=== PATIENT | female | born 1930 | race Caucasian/White ===

== ENCOUNTER 2017-11-08 17:48 | Inpatient (IN) | payer OTHER ==
[2017-11-08 18:07] LABS: Arterial Blood Carboxyhemoglob 1.5 % (0-1.5); Blood Gas Oxyhemoglobin 95.4 % (94-97); Blood O2 Saturation 97.3 % (92-98.5)
[2017-11-08] MEDS ORDERED: NITROGLYCERIN 1 GM PKT TD ONE (18:22)
[2017-11-08] MEDS ORDERED: FUROSEMIDE 100 MG/10 ML VIAL IV ONE (18:22)
[2017-11-08 18:27] LABS: Protime INR 1.19
[2017-11-08 18:38] LABS: Albumin 2.9 g/dL (3.2-5.5); Bilirubin Direct 0.2 mg/dL (0-0.2); Magnesium 2.5 mg/dL (1.8-2.5); Protein, Total 5.5 g/dL (6.0-8.3)
[2017-11-08 18:39] LABS: Absolute Monocytes 0.8 K/uL (0.1-1.3); Absolute Neutrophil 12.1 K/uL (1.8-8.0); Basophils % 0.2 % (0-1.3); Eosinophils % 0.3 % (0-4.4); Hematocrit 31.1 % (36.0-45.0); Lymphocytes % 13.4 % (15.3-44.8); MCH 27.4 pg (27.0-35.0); MCV 88.2 fL (80-100); MPV 11.9 fL (7.6-11.3); Monocytes % 5.2 % (3.3-12.3); RBC Red Blood Cell Count 3.52 M/uL (3.86-4.86)
--- NOTE | 2017-11-08 18:40 | RAD REPORT ---
EXAM DESCRIPTION: RAD - Chest Single View - 11/08/2017 6:34 pm CLINICAL HISTORY: Shortness of breath. COMPARISON: 10/03/2017 FINDINGS: Portable technique limits examination quality. A moderate right pleural effusion is noted. The lungs are otherwise grossly clear. The heart is mildl y enlarged in size. No displaced fractures. IMPRESSION: Moderate right pleural effusion.
[2017-11-08 18:41] LABS: CKMB Creatine Kinase MB 1.9 ng/ml (0.3-4.0)
[2017-11-08 18:43] LABS: Potassium 6.6 mEq/L (3.6-5.0)
[2017-11-08] MEDS ORDERED: AMIODARONE HCL 450 MG in D5W 241 ML IV SCH (19:00)
[2017-11-08] MEDS ORDERED: ALBUTEROL 2.5 MG/3 ML NEB SOL ONE (19:08)
[2017-11-08] MEDS ORDERED: INSULIN -REGULAR HUMAN 50 UNIT/0.5 ML ML ONE (19:08)
[2017-11-08] MEDS ORDERED: D50W 25 GM/50 ML SYRINGE IV ONE (19:09)
--- NOTE | 2017-11-08 19:11 | ER ---
Nurse's Notes [facility] Name: Ramila Arias Age: 87 yrs Sex: Female : 1930 Arrival Date: 11/08/2017 Time: 17:49 Bed 4 Private MD: Diagnosis: Acute combined systolic (congestive) and diastolic (congestive) heart failure Presentation: 11/08 17:52 Presenting complaint: EMS states: C/O SOB that started today. Patient is on hospice for aj CHF. Anasarca noted to bilateral legs. Transition of care: patient was received from another setting of care (long-term care facility). Onset of symptoms was November 08, 2017. Care prior to arrival: CPAP. 17:52 Method Of Arrival: EMS: [facility] 17:52 Acuity: KRISTIN 2 aj Triage Assessment: 17:58 General: Appears in no apparent distress. uncomfortable, obese, Behavior is aj cooperative, anxious. Pain: Denies pain. Neuro: Level of Consciousness is awake, alert, obeys commands, Oriented to person, place, time, situation. Cardiovascular: Edema is 4+ to left midcalf, left ankle, left foot, right midcalf, right ankle and right foot. Respiratory: Reports shortness of breath at rest on exertion Airway is patent Respiratory effort is even, labored, Respiratory pattern is tachypnea Onset: The symptoms/episode began/occurred today, the patient has severe shortness of breath. Derm: Skin is intact, is healthy with good turgor, Skin is pink, warm \T\ dry. normal. Historical: - Allergies: 17:58 NKA; aj - Home Meds: 17:58 acetaminophen 500 mg Oral tab 2 tabs as needed for Pain [Active]; amlodipine 10 mg tab aj 1 tab once daily for Hypertension [Active]; atorvastatin 10 mg Oral tab 1 tab once daily for Mixed Hyperlipidemia [Active]; citalopram 10 mg tab 1 tab once daily for Major Depressive Disorder [Active]; DuoNeb 0.5 mg-3 mg(2.5 mg base)/3 mL Inhl nebu 3 mL 4 times per day [Active]; glucogon as needed for hypoglycemia [Active]; Lantus 100 unit/mL Sub-Q soln [Active]; Lasix 40 mg Oral tab 1 tab 2 times per day [Active]; Lasix 20 mg Oral tab 1 tab 2 times per day [Active]; levothyroxine 75 mcg tab 1 tab once daily for Hypothyroidism [Active]; lisinopril 20 mg Oral tab 1 tab twice a day for Hypertension [Active]; loperamide 2 mg Oral cap 2 caps as needed for diarrhea [Active]; Novolog 100 unit/mL Sub-Q soln 14 unit before supper [Active]; potassium chloride 20 mEq Oral TbER 1 tab 2 times per day [Active]; sotalol 80 mg Oral tab 1 tab 2 times per day [Active]; Symbicort 160-4.5 mcg/actuation inhalation HFAA twice a day [Active]; Tessalon Perles 100 mg Oral cap 1 cap 3 times per day for as needed for cough'\E\ [Active]; valsartan 160 mg Oral tab 1 tab once daily [Active]; Xarelto 20 mg Oral tab 1 tab once daily for AFIB [Active]; - PMHx: 17:58 acute respiratory failure; Atrial Fib; CAD; candidiasis; CHF; Depression; Diabetes - aj IDDM; EDEMA; Hyperlipidemia; Hypertension; Hypothyroidism; MUSCLE WEAKNESS; Pneumonia; sob- o2 use at 2L; UTI; - Immunization history:: Adult Immunizations up to date. - Social history:: Smoking status: Patient/guardian denies using tobacco. Screenin:05 Abuse screen: Denies threats or abuse. Denies injuries from another. Nutritional aj1 screening: No deficits noted. Tuberculosis screening: No symptoms or risk factors identified. 22:26 Fall Risk Fall in past 12 months (25 points). Secondary diagnosis (15 points) impaired aj1 mobility, IV access (20 points). Ambulatory Aid- None/Bed Rest/Nurse Assist (0 pts). Gait- Normal/Bed Rest/Wheelchair (0 pts) Mental Status- Overestimates/Forgets Limitations (15 pts.). Total Isidro Fall Scale indicates High Risk Score (45 or more points). Family Present and informed to notify staff if the need to leave the bedside As available patient and family educated on Fall Prevention Program and Strategies. Assessment: 18:05 General: Appears distressed, uncomfortable, Behavior is cooperative, anxious. Pain: aj1 Denies pain. Neuro: Level of Consciousness is awake, alert, obeys commands, Oriented to person, place, time, situation. Cardiovascular: Reports shortness of breath, Denies chest pain, Heart tones S1 S2 present skin is pale, cool. clammy, cyanosis noted to fingertips. Edema pitting to enitre body Rhythm is atrial fibrillation with rapid ventricular response. Respiratory: Reports shortness of breath Airway is patent Respiratory effort is even, labored, Respiratory pattern is tachypnea Breath sounds with crackles Breath sounds are diminished. GI: No signs and/or symptoms were reported involving the gastrointestinal system. : No signs and/or symptoms were reported regarding the genitourinary system. EENT: No signs and/or symptoms were reported regarding the EENT system. Derm: Skin is clammy, Skin is pale, Skin temperature is cool Bruising that is dark purple, on left calf. Musculoskeletal: Circulation, motion, and sensation intact. 19:05 Reassessment: Patient appears in no apparent distress at this time. No changes from aj1 previously documented assessment. Patient and/or family updated on plan of care and expected duration. Pain level reassessed. Patient is alert, oriented x 3, equal unlabored respirations, skin warm/dry/pink. 19:15 Reassessment: After giving initial 150 mg of amiodarone BP dropped to 76/41, removed aj1 Nitro patch and notified Dr. Galvez, order received to cancel remaining amiodarone. 20:05 General: Appears in no apparent distress. uncomfortable, Behavior is anxious, restless. aj1 Pain: Complains of pain in right leg and left leg Pain does not radiate. Pain currently is 10 out of 10 on a pain scale. Neuro: Level of Consciousness is awake, alert, obeys commands, Oriented to person, place, time, situation. Cardiovascular: Heart tones S1 S2 present Edema pitting to entire body Rhythm is atrial fibrillation with rapid ventricular response. Respiratory: Airway is patent Respiratory effort is even, unlabored, Respiratory pattern is regular, tachypnea Breath sounds with crackles bilaterally. Breath sounds are diminished. Derm: Skin is clammy, Skin is pale, Skin temperature is cool. Musculoskeletal: Circulation, motion, and sensation intact. 20:15 Reassessment: Patient is complaining of pain, notified JAMES Urbina. Order received. aj1 21:16 Reassessment: Patient appears in no apparent distress at this time. No changes from aj1 previously documented assessment. Patient and/or family updated on plan of care and expected duration. Pain level reassessed. Patient is alert, oriented x 3, equal unlabored respirations, skin warm/dry/pink. Vital Signs: 17:58 BP 135 / 110; Pulse 137; Resp 28; Temp 98.7; Pulse Ox 100% on BiPAP; Weight 113.4 kg; aj Height 5 ft. 5 in. (165.10 cm); 18:23 BP 104 / 74; Pulse 143; Resp 35; Pulse Ox 98% ; aj 19:16 BP 76 / 41; Pulse 136; Resp 32; Pulse Ox 100% on BiPAP; aj1 19:34 BP 101 / 70; Pulse 136; Resp 28; Pulse Ox 100% ; aj1 19:52 BP 90 / 60; Pulse 136; Resp 34; Pulse Ox 100% ; aj1 20:24 BP 91 / 67; Pulse 157; Resp 32; Pulse Ox 97% ; aj1 21:39 BP 97 / 71; Pulse 133; Resp 26; Pulse Ox 100% ; aj1 17:58 Body Mass Index 41.60 (113.40 kg, 165.10 cm) aj ED Course: 17:49 Patient arrived in ED. ds1 17:49 Prince Galvez MD is Attending Physician. ma2 17:54 Triage completed. aj 17:58 Arm band placed on left wrist. Patient placed in an exam room, on a stretcher. EKG aj completed in triage. Results shown to MD. 18:05 Patient has correct armband on for positive identification. aj1 18:05 No provider procedures requiring assistance completed. aj1 18:05 Initial lab(s) drawn, by de, sent to lab. Inserted saline lock: 22 gauge in right aj1 antecubital area, using aseptic technique. Blood collected. 18:19 Keisha Lim, RN is Primary Nurse. aj 18:32 X-ray completed. Portable x-ray completed in exam room. Patient tolerated procedure ml well. 19:09 Prince Galvez MD is Hospitalizing Provider. ma2 19:09 Hospitalizing Provider role handed off by Prince Galvez MD ma2 19:09 Prince Barry MD is Hospitalizing Provider. ma2 22:12 Primary Nurse role handed off by Keisha Lim RN tl2 22:12 Attending Physician role handed off by Prince Galvez MD tl2 22:27 Patient admitted, IV remains in place. aj1 Administered Medications: 18:20 Drug: Lasix 100 mg Route: IVP; Site: left antecubital; aj 19:00 Follow up: Response: No adverse reaction aj1 18:20 Drug: Nitroglycerin Ointment 2 % 1 inches Route: Transdermal; Site: anterior chest wall;aj 19:15 Follow up: Response: Adverse reaction, Physician notified; Blood pressure is lowered aj1 19:00 Drug: Albuterol 2.5 mg Route: Inhalation; aj1 19:00 Drug: Insulin Regular Human 5 units {Co-Signature: aj (Keisha Lim RN).} Route: IVP; aj1 Site: left antecubital; 19:15 Follow up: Response: No adverse reaction aj1 19:00 Drug: D50W 50 ml Route: IVP; Site: left antecubital; aj1 19:15 Follow up: Response: No adverse reaction aj1 19:15 Drug: amiodarone 150 mg {Note: Gave 150mg IVP, rechecked BP 76/41, notified DrNola Galvez, do not give the rest of amiodarone .} Route: IVP; Site: left antecubital; 19:15 Follow up: Response: Adverse reaction, Physician notified; Blood pressure is lowered aj1 20:05 Not Given (Physician Discretion): amiodarone 900 mg, D5W 500 ml IVPB at 1 mg/min aj1 continuous; for 6 hrs, then change to 0.5 mg/min 20:23 Drug: fentaNYL (PF) 25 mcg Route: IVP; Site: left antecubital; aj1 20:45 Drug: fentaNYL (PF) 25 mcg Route: IVP; Site: left antecubital; aj1 21:14 CANCELLED (ordered under wrong physician name): HydroCORTISONE 100 mg IVP once aj1 21:15 Drug: HydroCORTISONE 100 mg Route: IVP; Site: left antecubital; aj1 21:55 Drug: fentaNYL (PF) 25 mcg Route: IVP; Site: left antecubital; aj1 22:00 Not Given (Physician Discretion): Nitro Drip - (Nitroglycerin 50 mg, D5W 250 ml) IV at aj1 5 mcg/min continuous; titrate until desired hemodynamic response. Outcome: 19:10 Decision to Hospitalize by Provider. ma2 22:12 Patient left the ED. tl2 22:27 Admitted to Tele accompanied by nurse, accompanied by tech, via stretcher, with chart. aj1 22:27 Condition: improved 22:27 Discharge instructions given to patient, Instructed on the need for admit, Demonstrated understanding of instructions. 22:31 Patient left the ED. aj1 Signatures: Paulina Karimi RN RN aj1 Keisha Lim RN RN Elaine Burnette ds1 Cindy Hamm Taylor, RN RN tl2 Prince Galvez MD MD ma2 Keisha bradford
--- NOTE | 2017-11-08 19:11 | EDPHYS ---
Physician Documentation [facility] Name: Ramila Arias Age: 87 yrs Sex: Female : 1930 Arrival Date: 11/08/2017 Time: 17:49 Bed 4 Private MD: ED Physician HPI: 11/08 18:08 This 87 yrs old Female presents to ER via EMS with complaints of Breathing ma2 Difficulty. 18:08 Onset: The symptoms/episode began/occurred gradually, 1 day(s) ago. Duration: The ma2 symptoms are chronic. The patient's shortness of breath has no apparent modifying factors. Associated signs and symptoms: Pertinent positives: LE edema , Pertinent negatives: chest pain, non-productive cough, diaphoresis, dizziness, loss of consciousness, nausea. Severity of symptoms: At their worst the symptoms were moderate in the emergency department the symptoms have improved. The patient has experienced similar episodes in the past. Historical: - Allergies: 17:58 NKA; aj - Home Meds: 17:58 acetaminophen 500 mg Oral tab 2 tabs as needed for Pain [Active]; amlodipine 10 mg tab aj 1 tab once daily for Hypertension [Active]; atorvastatin 10 mg Oral tab 1 tab once daily for Mixed Hyperlipidemia [Active]; citalopram 10 mg tab 1 tab once daily for Major Depressive Disorder [Active]; DuoNeb 0.5 mg-3 mg(2.5 mg base)/3 mL Inhl nebu 3 mL 4 times per day [Active]; glucogon as needed for hypoglycemia [Active]; Lantus 100 unit/mL Sub-Q soln [Active]; Lasix 40 mg Oral tab 1 tab 2 times per day [Active]; Lasix 20 mg Oral tab 1 tab 2 times per day [Active]; levothyroxine 75 mcg tab 1 tab once daily for Hypothyroidism [Active]; lisinopril 20 mg Oral tab 1 tab twice a day for Hypertension [Active]; loperamide 2 mg Oral cap 2 caps as needed for diarrhea [Active]; Novolog 100 unit/mL Sub-Q soln 14 unit before supper [Active]; potassium chloride 20 mEq Oral TbER 1 tab 2 times per day [Active]; sotalol 80 mg Oral tab 1 tab 2 times per day [Active]; Symbicort 160-4.5 mcg/actuation inhalation HFAA twice a day [Active]; Tessalon Perles 100 mg Oral cap 1 cap 3 times per day for as needed for cough'\E\ [Active]; valsartan 160 mg Oral tab 1 tab once daily [Active]; Xarelto 20 mg Oral tab 1 tab once daily for AFIB [Active]; - PMHx: 17:58 acute respiratory failure; Atrial Fib; CAD; candidiasis; CHF; Depression; Diabetes - aj IDDM; EDEMA; Hyperlipidemia; Hypertension; Hypothyroidism; MUSCLE WEAKNESS; Pneumonia; sob- o2 use at 2L; UTI; - Immunization history:: Adult Immunizations up to date. - Social history:: Smoking status: Patient/guardian denies using tobacco. ROS: 18:08 Constitutional: Negative for fever, chills, and weight loss, Eyes: Negative for injury, ma2 pain, redness, and discharge, ENT: Negative for injury, pain, and discharge, Neck: Negative for injury, pain, and swelling, Abdomen/GI: Negative for abdominal pain, nausea, diarrhea, and constipation, Back: Negative for injury and pain, : Negative for injury, bleeding, discharge, and swelling, MS/Extremity: Negative for injury and deformity, Skin: Negative for injury, rash, and discoloration, Neuro: Negative for headache, weakness, numbness, tingling, and seizure, Psych: Negative for depression, anxiety, suicide ideation, homicidal ideation, and hallucinations, Allergy/Immunology: Negative for hives, rash, and allergies, Endocrine: Negative for neck swelling, polydipsia, polyuria, polyphagia, and marked weight changes. 18:08 Cardiovascular: Positive for edema, orthopnea, Negative for chest pain, acute changes. 18:08 Respiratory: Positive for shortness of breath, Negative for cough, sputum production, wheezing. Exam: 18:08 ENT: Nares patent. No nasal discharge, no septal abnormalities noted. Tympanic ma2 membranes are normal and external auditory canals are clear. Oropharynx with no redness, swelling, or masses, exudates, or evidence of obstruction, uvula midline. Mucous membranes moist. Neck: Trachea midline, no thyromegaly or masses palpated, and no cervical lymphadenopathy. Supple, full range of motion without nuchal rigidity, or vertebral point tenderness. No Meningismus. Abdomen/GI: Soft, non-tender, with normal bowel sounds. No distension or tympany. No guarding or rebound. No evidence of tenderness throughout. Neuro: Awake and alert, GCS 15, oriented to person, place, time, and situation. Cranial nerves II-XII grossly intact. Motor strength 5/5 in all extremities. Sensory grossly intact. Cerebellar exam normal. Normal gait. 18:08 Constitutional: The patient appears alert, awake, in obvious distress, moderately distressed. 18:08 Chest/axilla: Inspection: no acute changes, Palpation: no acute changes. 18:08 Cardiovascular: Rate: tachycardic, Rhythm: irregularly irregular, Edema: 4+ edema to level of left midcalf and right midcalf, JVD: 18:08 ECG was reviewed by the Attending Physician. 18:08 Respiratory: moderate respiratory distress is noted, Respirations: Breath sounds: rales, Respiratory rate: 22 Vital Signs: 17:58 BP 135 / 110; Pulse 137; Resp 28; Temp 98.7; Pulse Ox 100% on BiPAP; Weight 113.4 kg; aj Height 5 ft. 5 in. (165.10 cm); 18:23 BP 104 / 74; Pulse 143; Resp 35; Pulse Ox 98% ; aj 19:16 BP 76 / 41; Pulse 136; Resp 32; Pulse Ox 100% on BiPAP; aj1 19:34 BP 101 / 70; Pulse 136; Resp 28; Pulse Ox 100% ; aj1 19:52 BP 90 / 60; Pulse 136; Resp 34; Pulse Ox 100% ; aj1 20:24 BP 91 / 67; Pulse 157; Resp 32; Pulse Ox 97% ; aj1 21:39 BP 97 / 71; Pulse 133; Resp 26; Pulse Ox 100% ; aj1 17:58 Body Mass Index 41.60 (113.40 kg, 165.10 cm) aj MDM: 17:49 Patient medically screened. ma2 18:08 Differential diagnosis: Anemia Anxiety Reaction CHF exacerbation, Chronic Obstructive ma2 Pulmonary Disease pneumonia, pulmonary edema, reactive airway disease. 19:08 Data reviewed: vital signs, nurses notes, EMS record. Counseling: I had a detailed [facility] discussion with the patient and/or guardian regarding: the historical points, exam findings, and any diagnostic results supporting the discharge/admit diagnosis, lab results, radiology results. 11/08 17:50 Order name: Basic Metabolic Panel [facility] 11/08 17:50 Order name: BNP [facility] 11/08 17:50 Order name: CBC with Diff [facility] 11/08 17:50 Order name: Ckmb [facility] 11/08 17:50 Order name: CPK [facility] 11/08 17:50 Order name: LFT's [facility] 11/08 17:50 Order name: Magnesium [facility] 11/08 17:50 Order name: PT-INR [facility] 11/08 17:50 Order name: Ptt, Activated [facility] 11/08 17:50 Order name: Troponin (emerg Dept Use Only) [facility] 11/08 18:04 Order name: ABG [facility] 11/08 18:32 Order name: Basic Metabolic Panel; Complete Time: 19:05 EDMS 11/08 18:33 Order name: Protime (+INR); Complete Time: 19:05 EDMS 11/08 18:33 Order name: PTT, Activated Partial Thromb; Complete Time: 19:05 EDMS 11/08 17:50 Order name: XRAY Chest (1 view) [facility] 11/08 18:33 Order name: ABG Arterial Blood Gas; Complete Time: 19:05 EDMS 11/08 18:38 Order name: Liver (Hepatic) Function; Complete Time: 19:05 EDMS 11/08 18:38 Order name: Creatine Phosphokinase; Complete Time: 19:05 EDMS 11/08 18:38 Order name: Magnesium; Complete Time: 19:05 EDMS 11/08 18:38 Order name: Troponin (Emerg Dept Use Only); Complete Time: 19:05 MS 11/08 18:41 Order name: CBC with Automated Diff; Complete Time: 19:05 MS 11/08 18:42 Order name: CKMB Creatine Kinase MB; Complete Time: 19:05 EDMS 11/08 18:42 Order name: BNP B-Type Natriuretic Peptide; Complete Time: 19:05 EDMS 11/08 18:43 Order name: RAD; Complete Time: 19:05 EDMS 11/08 17:50 Order name: EKG; Complete Time: 17:51 ri11/08 17:50 Order name: Cardiac monitoring; Complete Time: 18:21 ri2 11/08 17:50 Order name: EKG - Nurse/Tech; Complete Time: 18:21 [facility] 11/08 17:50 Order name: IV Saline Lock; Complete Time: 18:21 [facility] 11/08 17:50 Order name: Labs collected and sent; Complete Time: 18:22 [facility] 11/08 17:50 Order name: O2 Per Protocol; Complete Time: 18:22 [facility] 11/08 17:50 Order name: O2 Sat Monitoring; Complete Time: 18:22 [facility] 11/08 19:31 Order name: Central Line Kit; Complete Time: 20:04 cp Administered Medications: 18:20 Drug: Lasix 100 mg Route: IVP; Site: left antecubital; aj 19:00 Follow up: Response: No adverse reaction aj1 18:20 Drug: Nitroglycerin Ointment 2 % 1 inches Route: Transdermal; Site: anterior chest wall;aj 19:15 Follow up: Response: Adverse reaction, Physician notified; Blood pressure is lowered aj1 19:00 Drug: Albuterol 2.5 mg Route: Inhalation; aj1 19:00 Drug: Insulin Regular Human 5 units {Co-Signature: aj (Keisha Lim RN).} Route: IVP; aj1 Site: left antecubital; 19:15 Follow up: Response: No adverse reaction aj1 19:00 Drug: D50W 50 ml Route: IVP; Site: left antecubital; aj1 19:15 Follow up: Response: No adverse reaction aj1 19:15 Drug: amiodarone 150 mg {Note: Gave 150mg IVP, rechecked BP 76/41, notified Dr. patt Galvez, do not give the rest of amiodarone .} Route: IVP; Site: left antecubital; 19:15 Follow up: Response: Adverse reaction, Physician notified; Blood pressure is lowered aj1 20:05 Not Given (Physician Discretion): amiodarone 900 mg, D5W 500 ml IVPB at 1 mg/min aj1 continuous; for 6 hrs, then change to 0.5 mg/min 20:23 Drug: fentaNYL (PF) 25 mcg Route: IVP; Site: left antecubital; aj1 20:45 Drug: fentaNYL (PF) 25 mcg Route: IVP; Site: left antecubital; aj1 21:14 CANCELLED (ordered under wrong physician name): HydroCORTISONE 100 mg IVP once aj1 21:15 Drug: HydroCORTISONE 100 mg Route: IVP; Site: left antecubital; aj1 21:55 Drug: fentaNYL (PF) 25 mcg Route: IVP; Site: left antecubital; aj1 22:00 Not Given (Physician Discretion): Nitro Drip - (Nitroglycerin 50 mg, D5W 250 ml) IV at aj1 5 mcg/min continuous; titrate until desired hemodynamic response. Disposition: 19:08 Critical Care:. ma2 Disposition: 11/08/17 19:10 Hospitalization ordered by Prince Barry for Inpatient Admission. Preliminary diagnosis is Acute combined systolic (congestive) and diastolic (congestive) heart failure. - Bed requested for Telemetry/MedSurg (Inpatient). - Status is Inpatient Admission. aj1 - Condition is Guarded. - Problem is new. - Symptoms have improved. UTI on Admission? No Signatures: Dispatcher [employer] EDMS Paulina Karimi RN RN aj1 Keisha Lim RN RN aj Ballard, Brenda, RN RN Zackery Vitale PA PA cp Knox, Taylor, RN RN 2 Prince Galvez MD MD [facility] Keisha bradford Corrections: (The following items were deleted from the chart) 21:14 21:13 HydroCORTISONE 100 mg IVP once ordered. aj1 aj1
[2017-11-08] MEDS ORDERED: AMIODARONE HCL 150 MG/3 ML INJ IV ONE (19:16)
[2017-11-08] MEDS ORDERED: ACETAMINOPHEN 500 MG TAB PO PRN (20:08)
[2017-11-08] MEDS ORDERED: ONDANSETRON 4 MG/2 ML VIAL IV PRN (20:08)
[2017-11-08] MEDS ORDERED: MORPHINE 4 MG/ML SYR IV PRN (20:10)
[2017-11-08] MEDS ORDERED: LIDOCAINE 1% 20 ML MDV ONE (20:13)
[2017-11-08] MEDS ORDERED: FENTANYL CITR 100 MCG/2 ML ONE (20:35)
[2017-11-08] MEDS ORDERED: INSULIN DETEMIR 100 UNIT/1 ML INSULIN SQ SCH (21:00)
[2017-11-08] MEDS ORDERED: FUROSEMIDE 40 MG TABLET PO SCH (21:00)
[2017-11-08] MEDS ORDERED: ALBUMIN HUMAN 25% 200 ML IV ONE (21:01)
--- NOTE | 2017-11-08 22:28 | EKG ---
Test Date: 2017-11-08 Test Time: 17:55:06 [employer] Supervisor: ZULEIKA MEASUREMENT RESULTS: Intervals: Rate: 145 MD: QRSD: 80 QT: 294 QTc: 456 [place]: P: MD: QRS: 33 T: 187 INTERPRETIVE STATEMENTS: Atrial fibrillation with rapid ventricular response ST & T wave abnormality, consider lateral ischemia Abnormal ECG Compared to ECG 09/29/2017 05:06:54 ST (T wave) deviation now present Possible ischemia now present Sinus bradycardia no longer present T-wave abnormality no longer present Electronically Signed On 11-08-17 22:28:09 CDT by Steven Mathur
[2017-11-08 23:26] VITALS: BMI 41.6
[2017-11-08] MEDS: DOCUSATE NA 100 MG CAP PO SCH (23:36)
[2017-11-08] MEDS ORDERED: ALBUMIN HUMAN 25% 100 ML IV ONE (23:41)
[2017-11-09] MEDS ORDERED: SOTALOL HCL 80 MG TAB PO ONE ×2 (01:03→02:00)
[2017-11-09] MEDS ORDERED: CALCIUM GLUC 10% INJ 4.65 MEQ in NA CHLORIDE 0.9% 100 ML IV ONE (01:05)
[2017-11-09] MEDS ORDERED: SODIUM BICARB 50 MEQ/50ML VIAL ONE (01:34)
[2017-11-09] MEDS ORDERED: D5W 1,000 ML with NA BICARB 8.4% 50 MEQ IV SCH ×2 (02:00)
[2017-11-09] MEDS: FENTANYL CITR 100 MCG/2 ML IV PRN ×2 (02:36→08:59)
[2017-11-09 03:36] VITALS: O2SAT 95
[2017-11-09] MEDS ORDERED: AMIODARONE HCL 450 MG in D5W 241 ML IV SCH (05:00)
[2017-11-09 06:02] LABS: Absolute Lymphocytes (CBC) 1.5 K/uL (0.7-4.9); Absolute Monocytes 0.4 K/uL (0.1-1.3); Absolute Neutrophil 11.6 K/uL (1.8-8.0); Basophils % 0.3 % (0-1.3); Eosinophils % 0.1 % (0-4.4); Hematocrit 33.5 % (36.0-45.0); Lymphocytes % 10.8 % (15.3-44.8); MCV 89.6 fL (80-100); MPV 12.5 fL (7.6-11.3); Monocytes % 3.3 % (3.3-12.3); RBC Red Blood Cell Count 3.73 M/uL (3.86-4.86)
[2017-11-09] MEDS: SOTALOL HCL 80 MG TAB PO SCH ×2 (06:15→17:05)
[2017-11-09 06:17] LABS: Albumin 2.9 g/dL (3.2-5.5); Protein, Total 5.3 g/dL (6.0-8.3)
--- NOTE | 2017-11-09 06:17 | P.HP ---
Certification for Inpatient Patient admitted to: Inpatient With expected LOS: >2 Midnights Patient will require the following post-hospital care: None Practitioner: I am a practitioner with admitting privileges, knowledge of patient current condition, hospital course, and medical plan of care. Services: Services provided to patient in accordance with Admission requirements found in Title 42 Section 412.3 of the Code of Federal Regulations Patient History Date of Service: 11/08/17 Reason for admission: Respiratory distress History of Present Illness: Patient is an 87-year-old female who I have known for a long time who has a history of congestive heart failure along with atrial fibrillation as well as hypertension and diabetes. Patient has declined quite significantly over the last few months and the family placed her in hospice care yesterday. Patient's daughter is power of civil drafter. However, the other 2 children are very involved in the decision-making. Patient was brought into the hospital in respiratory distress. Patient has significant anasarca in all 4 extremities. Patient also had a large bruising above her zygomatic arch bilaterally. It appears as for her classes were and were left in place for an extended period. I spoke to the family in detail and everyone does not want their mother to suffer. They do not want her to be cardioverted replaced on a mechanical ventilator, so they have decided to make her a do not resuscitate. Patient has had multiple episodes of altered mentation over the last few years. However, she tends to recover but she has continually declined over the last few years. At this time , family has decided to proceed with hospice care. Will continue palliative care at this time and will discuss the case with hospice in the morning. Will also continue to diurese her to the hell with the respirations and will make sure she gets her fentanyl regularly to control her pain. Will also control her rate with sotalol that she takes longstanding. Will also monitor her potassium level as it has been elevated(she was given an amp of d 50 along with insulin as well as neb treatments and diuretics in the emergency room). Allergies No Known Drug Allergies Allergy (Verified 09/28/17 09:21) Unknown No Known Allergies Allergy (Uncoded 09/28/17 18:02) Unknown Home Medications: Rivaroxaban [Xarelto*] 20 mg PO DAILY AT SUPPER #0 tablet 09/30/13 Atorvastatin Calcium [Lipitor*] 10 mg PO BEDTIME 09/12/16 Insulin Aspart [Novolog*] 0 unit SQ SEECOM 09/16/16 Sotalol HCl [Betapace*] 80 mg PO BID 6AM 6PM #60 tab 09/20/16 Potassium Chloride 1 tab PO BID 03/05/17 Budesonide/Formoterol Fumarate [Symbicort 160-4.5 Mcg Inhaler] 1 puff IN BID 10/12 Ipratropium/Albuterol Sulfate [Iprat-Albut 0.5-3(2.5) mg/3 ml] 3 ml IH Q8HR 10/12 Acetaminophen [Tylenol Extra Strength] 1,000 mg PO Q6HR PRN 08/28/17 Benzonatate [Tessalon Perle*] 100 mg PO Q8HP PRN 08/28/17 Citalopram Hydrobromide [Celexa] 10 mg PO DAILY 08/28/17 Furosemide [Lasix*] 40 mg PO Q12H 08/28/17 Glucagon HCl 1 ml IM PRN PRN 08/28/17 Insulin Glargine,Hum.rec.anlog [Lantus] 20 unit SQ BEDTIME 08/28/17 Levothyroxine Sodium 75 mcg PO DAILY 08/28/17 Lisinopril 20 mg PO Q12H 08/28/17 Loperamide HCl [Anti-Diarrheal] 1 mg PO PRN PRN 08/28/17 Docusate [Colace Cap*] 100 mg PO BID #60 cap 10/03/17 Polyethyl Gly 3350 [Glycolax*] 17 gm PO DAILY PRN #1 udbot 10/03/17 Prednisone [Prednisone*] 10 mg PO BID #10 tab 10/03/17 Acetaminophen [Acephen] 650 mg RC Q4HP PRN 11/09/17 Amlodipine [Norvasc*] 10 mg PO DAILY 11/09/17 Atropine Sulfate Solution 1% 1 drop SL Q4H PRN 11/09/17 Bisacodyl 10 mg RC DAILY PRN 11/09/17 Lorazepam [Ativan] 1 mg PO SEECOM 11/09/17 Mag Hydroxide 8% [Milk Of Magnesia] 30 ml PO SEECOM 11/09/17 Morphine Sulfate Solution 20mg/Ml 0.5 ml PO SEECOM 11/09/17 Nystatin Powder [id number] 1 appl TOP Q12H 11/09/17 Ondansetron HCl [Zofran] 4 mg PO Q8HP PRN 11/09/17 - Past Medical/Surgical History Has patient received pneumonia vaccine in the past: Yes Diabetic: Yes -: AFib (09/2013) -: HTN -: IDDM -: Hypothyroidism -: Migraines -: Depression -: ARF -: Pneumonia -: Hysterectomy -: Cholecystectomy -: Uterine prolapse with repair -: joint replacement -: angioplasty -: CABG -: Stents -: appendectomy Psychosocial/ Personal History: Not obtained - Family History Mother Medical History: Stroke Father Medical History: Diabetes - Social History Smoking Status: Never smoker Alcohol use: No CD- Drugs: No Caffeine use: No Place of Residence: Jail Review of Systems is unable to be obtained Physical Examination - Vital Signs Temperature: 97.0 F Blood Pressure: 111/62 Pulse: 83 Respirations: 20 Pulse Ox (%): 96 - Physical Exam General: Moderate distress, Other (Patient crying out in pain) HEENT: Atraumatic, PERRLA, Mucous membr. moist/pink, EOMI, Sclerae nonicteric Neck: Supple, 2+ carotid pulse no bruit, No LAD, Without JVD or thyroid abnormality Respiratory: Diminished, Crackles/rales, Expiratory wheezes Cardiovascular: Regular rate/rhythm, Normal S1 S2, Systolic murmur Gastrointestinal: Normal bowel sounds, Soft and benign, Non-distended, No tenderness Musculoskeletal: No tenderness Integumentary: No rashes, No erythema, No warmth, Tenderness/swelling Neurological: Sensation intact, Abnormal gait, Abnormal speech, Abnormal strength, Abnormal affect Lymphatics: No axilla or inguinal lymphadenopathy - Studies Laboratory Data (last 24 hrs) 11/08/17 18:05: PT 14.1 H, INR 1.19, APTT 26.0 11/08/17 18:05: WBC 14.9 H D, Hgb 9.6 L D, Hct 31.1 L D, Plt Count 181 D 11/08/17 18:05: B-Natriuretic Peptide 387 H 11/08/17 18:05: Sodium 139, Potassium 6.6 H*, BUN 77 H, Creatinine 1.30 H, Glucose 152 H, Magnesium 2.5, Total Bilirubin 1.0, AST 17, ALT 44, Alkaline Phosphatase 67 Assessment & Plan - Problems (Diagnosis) (1) Palliative care patient Current Visit: Yes Status: Acute (2) Anasarca Current Visit: Yes Status: Acute (3) Hyperkalemia Current Visit: Yes Status: Acute (4) Acute respiratory distress Onset Date: 08/29/17 Current Visit: No Status: Acute (5) Altered mental status Current Visit: No Status: Acute (6) Atrial fibrillation with rapid ventricular response Onset Date: 09/17/17 Current Visit: No Status: Acute (7) CHF (congestive heart failure) Onset Date: 09/30/17 Current Visit: No Status: Acute Qualifiers: Qualified Code(s): I50.33 - Acute on chronic diastolic (congestive) heart failure (8) Hypoxia Onset Date: 09/17/16 Current Visit: No Status: Acute (9) Hypothyroidism Onset Date: 08/29/17 Current Visit: No Status: Chronic (10) Obesity Onset Date: 09/30/17 Current Visit: No Status: Chronic Qualifiers: Obesity classification: adult class 2 (BMI 35 - 39.9) Serious obesity comorbidity presence: with serious comorbidity Body mass index: BMI 36.0-36.9 - Plan Plan: 1. Patient was given amiodarone but her blood pressure dropped. She is on sotalol at home and will continue this 2. Stop Arb and continue diuresing; also continue nebs every 6 hr, and also continue steroids for 24 hrs and then may be switched to oral prednisone; BiPAP support for now 3. Comfort measures with fentanyl to prevent narcotic induced hypotension 4. Hospice consultation 5. Continue with monitoring renal function and potassium 6. Strict I's and O's 7. Do not resuscitate Patient's daughter is medical [id number] in her phone number is Patient's son phone number is [phone] - Advance Directives Does patient have a Living Will: Yes Does patient have a Durable POA for Healthcare: Yes - Code Status/Comfort Care Comfort Measures: Palliative Care
[2017-11-09 06:23] LABS: Bilirubin Total 1.4 mg/dL (0.3-1.2); Magnesium 2.5 mg/dL (1.8-2.5); Phosphorus 3.8 mg/dL (2.5-4.3)
[2017-11-09 06:24] LABS: Potassium 6.1 mEq/L (3.6-5.0)
[2017-11-09 07:05] LABS: Blood Morphology Comment NOT SEEN (NOT SEEN); Platelet Estimate ADEQ; Urine White Blood Cell Casts OK
[2017-11-09] MEDS: FUROSEMIDE 40 MG/4 ML VIAL IV SCH ×2 (08:41→17:06)
[2017-11-09] MEDS: DOCUSATE NA 100 MG CAP PO SCH (08:45)
[2017-11-09] MEDS ORDERED: VALSARTAN 80 MG TAB PO SCH (09:00)
[2017-11-09] MEDS ORDERED: ENOXAPARIN 40 MG/0.4 ML SQ SCH (09:00)
[2017-11-09] MEDS ORDERED: LEVOTHYROXINE SOD 0.075 MG TAB PO SCH (09:00)
[2017-11-09] MEDS ORDERED: HYDROCORTISONE SUC 100 MG INJ IV SCH (09:00)
--- NOTE | 2017-11-09 14:36 | P.DS ---
Admission Date: 11/08/17 Discharge Date: 11/09/17 Disposition: HOSPICE-MEDICAL FACILITY Discharge Condition: FAIR Reason for Admission: Respiratory distress - Problems (1) Atrial fibrillation with rapid ventricular response Onset Date: 09/17/17 Current Visit: No Status: Acute (2) CHF (congestive heart failure) Onset Date: 09/30/17 Current Visit: No Status: Chronic Qualifiers: Qualified Code(s): I50.33 - Acute on chronic diastolic (congestive) heart failure (3) Morbid obesity Onset Date: 08/29/17 Current Visit: No Status: Chronic (4) Chronic renal disease Current Visit: No Status: Chronic Qualifiers: Chronic kidney disease stage: stage 2 (mild) Qualified Code(s): N18.2 - Chronic kidney disease, stage 2 (mild) (5) Diabetes mellitus Onset Date: 08/29/17 Current Visit: No Status: Chronic (6) Hypertensive disorder, systemic arterial Onset Date: 09/30/17 Current Visit: No Status: Chronic (7) Hypothyroidism Onset Date: 08/29/17 Current Visit: No Status: Chronic Brief History of Present Illness: See HPI Hospital Course: Overall during the hospital stay patient remained stable Patient was initially admitted to the hospital for AFib with RVR. Was given amiodarone and restarted back on sotalol. Patient rate was controlled. Immune drawn was stopped in the ER only. Patient's family enrolled patient into hosp[facility] care yesterday at the retirement. Patient's family signed DNR DNI at this time and wished to return back to the retirement. Patient was thus return back to the retirement for palliative care and hospice care. Vital Signs/Physical Exam: Temp Pulse Resp BP Pulse Ox 96.7 F L 109 H 16 101/50 L 97 11/09/17 11:41 11/09/17 11:41 11/09/17 11:41 11/09/17 08:41 11/09/17 11:41 General: Alert, In no apparent distress HEENT: Atraumatic, PERRLA, EOMI Neck: Supple, JVD not distended Respiratory: Clear to auscultation bilaterally, Normal air movement Cardiovascular: Regular rate/rhythm, Normal S1 S2 Gastrointestinal: Normal bowel sounds, No tenderness Musculoskeletal: No tenderness Integumentary: No rashes Neurological: Normal speech, Normal tone, Normal affect Lymphatics: No axilla or inguinal lymphadenopathy Laboratory Data at Discharge: WBC 13.6 K/uL (4.3-10.9) H 11/09/17 05:53 Hgb 10.1 g/dL (12.0-15.0) L 11/09/17 05:53 Hct 33.5 % (36.0-45.0) L 11/09/17 05:53 Plt Count 153 K/uL (152-406) 11/09/17 05:53 PT 14.1 SECONDS (9.5-12.5) H 11/08/17 18:05 INR 1.19 11/08/17 18:05 APTT 26.0 SECONDS (24.3-36.9) 11/08/17 18:05 Sodium 143 mEq/L (135-145) 11/09/17 05:53 Potassium 6.1 mEq/L (3.6-5.0) H* 11/09/17 05:53 BUN 78 mg/dL (6-20) H 11/09/17 05:53 Creatinine 1.29 mg/dL (0.44-1.00) H 11/09/17 05:53 Glucose 91 mg/dL (65-120) 11/09/17 05:53 Phosphorus 3.8 mg/dL (2.5-4.3) 11/09/17 05:53 Magnesium 2.5 mg/dL (1.8-2.5) 11/09/17 05:53 Total Bilirubin 1.4 mg/dL (0.3-1.2) H 11/09/17 05:53 AST 19 IU/L (10-42) 11/09/17 05:53 ALT 41 IU/L (10-60) 11/09/17 05:53 Alkaline Phosphatase 63 IU/L (42-121) 11/09/17 05:53 B-Natriuretic Peptide 360 pg/ml (<=100) H 11/09/17 05:53 Home Medications: Rivaroxaban [Xarelto*] 20 mg PO DAILY AT SUPPER #0 tablet 09/30/13 Atorvastatin Calcium [Lipitor*] 10 mg PO BEDTIME 09/12/16 Insulin Aspart [Novolog*] 0 unit SQ SEECOM 09/16/16 Sotalol HCl [Betapace*] 80 mg PO BID 6AM 6PM #60 tab 09/20/16 Potassium Chloride 1 tab PO BID 03/05/17 Budesonide/Formoterol Fumarate [Symbicort 160-4.5 Mcg Inhaler] 1 puff IN BID 10/12 Ipratropium/Albuterol Sulfate [Iprat-Albut 0.5-3(2.5) mg/3 ml] 3 ml IH Q8HR 10/12 Acetaminophen [Tylenol Extra Strength] 1,000 mg PO Q6HR PRN 08/28/17 Benzonatate [Tessalon Perle*] 100 mg PO Q8HP PRN 08/28/17 Citalopram Hydrobromide [Celexa] 10 mg PO DAILY 08/28/17 Furosemide [Lasix*] 40 mg PO Q12H 08/28/17 Glucagon HCl 1 ml IM PRN PRN 08/28/17 Insulin Glargine,Hum.rec.anlog [Lantus] 20 unit SQ BEDTIME 08/28/17 Levothyroxine Sodium 75 mcg PO DAILY 08/28/17 Lisinopril 20 mg PO Q12H 08/28/17 Loperamide HCl [Anti-Diarrheal] 1 mg PO PRN PRN 08/28/17 Docusate [Colace Cap*] 100 mg PO BID #60 cap 10/03/17 Polyethyl Gly 3350 [Glycolax*] 17 gm PO DAILY PRN #1 udbot 10/03/17 Prednisone [Prednisone*] 10 mg PO BID #10 tab 10/03/17 Acetaminophen [Acephen] 650 mg RC Q4HP PRN 11/09/17 Amlodipine [Norvasc*] 10 mg PO DAILY 11/09/17 Atropine Sulfate Solution 1% 1 drop SL Q4H PRN 11/09/17 Bisacodyl 10 mg RC DAILY PRN 11/09/17 Lorazepam [Ativan] 1 mg PO SEECOM 11/09/17 Mag Hydroxide 8% [Milk Of Magnesia] 30 ml PO SEECOM 11/09/17 Morphine Sulfate Solution 20mg/Ml 0.5 ml PO SEECOM 11/09/17 Nystatin Powder [id number] 1 appl TOP Q12H 11/09/17 Ondansetron HCl [Zofran] 4 mg PO Q8HP PRN 11/09/17
[2017-11-09 15:47] VITALS: TEMP 97
[2017-11-09 17:14] VITALS: BP 108/51
[2017-11-09] MEDS ORDERED: METOPROLOL TAR 50 MG TAB PO SCH (21:00)
[2017-11-10] MEDS ORDERED: LEVOTHYROXINE SOD 0.075 MG TAB PO SCH (06:30)
--- NOTE | 2017-11-10 06:36 | EKG ---
Test Date: 2017-11-09 Test Time: 18:23:00 Computer Field Technician: SARAH MEASUREMENT RESULTS: Intervals: Rate: 130 CT: QRSD: 78 QT: 334 QTc: 491 [place]: P: CT: QRS: 24 T: 188 INTERPRETIVE STATEMENTS: Atrial fibrillation with rapid ventricular response Low voltage QRS ST & T wave abnormality, consider lateral ischemia or digitalis effect Abnormal ECG Compared to ECG 11/08/2017 17:55:06 Low QRS voltage now present ST (T wave) deviation still present Possible ischemia still present Electronically Signed On 11-10-17 06:34:29 CDT by Steven [email or web address]
[2017-11-10] MEDS ORDERED: ENOXAPARIN 30 MG/0.3 ML SQ SCH (09:00)
== END 2017-11-09 19:23 | disposition hospice, inpatient (51) | DRG 308 ==
LOC: ER 17:48 → ERHOLD 19:30 → 2ND 20:56
PROVIDERS: ADMIT Hospitalist; ATTEND Family Medicine
PROC: 5A09357 Assistance with Respiratory Ventilation, Less than 24 Consecutive Hours, Continuous Positive Airway Pressure (ICD-10-PCS; principal; 2017-11-08)
DX: I48.91 Unspecified atrial fibrillation (principal); I50.33 Acute on chronic diastolic (congestive) heart failure; I13.0 Hypertensive heart and chronic kidney disease with heart failure and stage 1 through stage 4 chronic kidney disease, or unspecified chronic kidney disease; R06.03 Acute respiratory distress; E87.5 Hyperkalemia; E03.9 Hypothyroidism, unspecified; E66.01 Morbid (severe) obesity due to excess calories; E11.22 Type 2 diabetes mellitus with diabetic chronic kidney disease; N18.2 Chronic kidney disease, stage 2 (mild)
CPT/HCPCS: 36415; 71045; 80048; 80053; 80076; 82550; 82553; 82805; 82962; 83735; 83880; 84100; 84484; 85025; 85610; 85730; 93005; 94660; 96374; 96375; 99285; J0282; J0610; J1650; J1720; J3010; J7060; P9047